=== PATIENT | female | born 1955 | race Hispanic/Latino ===

== ENCOUNTER 2018-03-24 20:07 | Emergency (ER) | payer OTHER ==
[2018-03-24 20:18] VITALS: BP 111/74; PULSE 80; RESP 16; TEMP 98.3; O2SAT 97
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
--- NOTE | 2018-03-25 09:07 | RAD ---
Date of service: 03/24/2018 PROCEDURE: Cervical Spine Radiographs. HISTORY: Pain. COMPARISON: None. FINDINGS: BONES: Alignment maintained. No gross fractures appreciated.. Limited evaluation of dens. No gross fracture here seen. DISC SPACES: Lateral view somewhat limited and upper cervical spine level. Diffuse disc space narrowing mild inferred. Diffuse bilateral apophyseal joint hypertrophic arthrosis. Moderate anterior spondylosis mostly C5-C6 and C7. SOFT TISSUES: Normal. No prevertebral soft tissue swelling. OTHER FINDINGS: None. IMPRESSION: Limited exam for reasons stated above. No gross fractures appreciated. If further evaluation is needed consider CT cervical spine study. Apophyseal joint hypertrophic arthrosis. Vertebral body spondylosis.
== END 2018-03-24 21:16 | disposition home or self-care (01) ==
LOC: C.ER 20:07
DX: M54.2 Cervicalgia (principal); V49.49XA Driver injured in collision with other motor vehicles in traffic accident, initial encounter; Y92.410 Unspecified street and highway as the place of occurrence of the external cause
CPT/HCPCS: 72040; 96372; 99282; J1885